=== PATIENT | female | born 1965 | race Hispanic/Latino ===

== ENCOUNTER 2017-10-20 07:32 | Day surgery (SDC) | payer OTHER ==
[~2017-10-20] VITALS: Ht 162.6 cm; Wt 79.0 kg
[~2017-10-20 07:32] MED LIST: ASPI-555 PO; ATOR40TA71 PO; CHOL200074 PO; INSU10VI3 SQ; LEVO150T11 PO; METF500T6 PO; SODIUM CHLORIDE 0.9% 1000ML 1,000 ML IV ONE; VALS40TA11 PO
[2017-10-20 07:43] VITALS: BP 146/69
[2017-10-20] MEDS ORDERED: HUM10VIA6 SQ ×2 (08:51)
[2017-10-20] MEDS ORDERED: FENTANYL CITRATE PF 50 MCG/1 ML 2ML VIAL ONE (10:09)
[2017-10-20] MEDS ORDERED: PROPOFOL 10 MG/ML 20ML VIAL IV ONE ×2 (10:09)
[2017-10-20 10:26] VITALS: BP 95/44
== END 2017-10-20 11:00 | disposition home or self-care (01) ==
LOC: DAH 07:32
PROVIDERS: ATTEND Internal Medicine Gastroenterology
DX: Z12.11 Encounter for screening for malignant neoplasm of colon (principal); K57.30 Diverticulosis of large intestine without perforation or abscess without bleeding; I10 Essential (primary) hypertension; E78.5 Hyperlipidemia, unspecified; I48.91 Unspecified atrial fibrillation; E11.9 Type 2 diabetes mellitus without complications; E03.9 Hypothyroidism, unspecified; Z90.710 Acquired absence of both cervix and uterus; Z98.890 Other specified postprocedural states; Z82.49 Family history of ischemic heart disease and other diseases of the circulatory system; Z79.4 Long term (current) use of insulin; Z79.82 Long term (current) use of aspirin
CPT/HCPCS: 45378; 82948 ×2; 93005; A4606; J2704 ×2; J3010; J7030

== ENCOUNTER → 2023-02-09 | Outpatient (CLI) | payer OTHER ==
[~2023-02-09] MED LIST changes: -ASPI-555 PO; +ASPI-556 PO; +HUM10VIA6 SQ; -INSU10VI3 SQ; +METF-444 PO; -METF500T6 PO; -SODIUM CHLORIDE 0.9% 1000ML 1,000 ML IV ONE
== END | disposition home or self-care (01) ==
LOC: RAH 13:50
PROVIDERS: ATTEND Nurse Practitioner Adult Health
DX: Z13.6 Encounter for screening for cardiovascular disorders (principal)
CPT/HCPCS: 75571

== ENCOUNTER → 2023-03-08 | Outpatient (CLI) | payer OTHER | END | disposition home or self-care (01) | LOC: RAH 12:59 | PROVIDERS: ATTEND Nurse Practitioner Adult Health | DX: R59.9 Enlarged lymph nodes, unspecified (principal); J39.8 Other specified diseases of upper respiratory tract; M47.815 Spondylosis without myelopathy or radiculopathy, thoracolumbar region; I70.0 Atherosclerosis of aorta | CPT/HCPCS: 71260 ==

== ENCOUNTER 2023-03-27 17:13 | Emergency (ER) | payer OTHER ==
[~2023-03-27] VITALS: Ht 154.9 cm; Wt 72.6 kg
[2023-03-27 17:58] LABS: BASOPHILS # (AUTO) 0.04 K/uL (0.00-0.20); BASOPHILS % (AUTO) 0.4 % (0.0-5.0); EOSINOPHILS # (AUTO) 0.12 K/uL (0.00-0.70); EOSINOPHILS % (AUTO) 1.3 % (0.0-8.0); HEMATOCRIT 36.5 % (36-48); IMMATURE GRANULOCYTE ABSOLUTE 0.03 K/uL (0-1); LYMPHOCYTES # (AUTO) 2.3 K/uL (1.0-4.8); LYMPHOCYTES % (AUTO) 25.2 % (21.0-51.0); MEAN CORPUSCULAR HGB CONC 32.6 g/dL (32.0-36.0); MEAN CORPUSCULAR VOLUME 85.9 fL (79-99); MONOCYTES # (AUTO) 0.5 K/uL (0.1-1.0); MONOCYTES % (AUTO) 5.2 % (3.0-13.0); NEUTROPHILS # (AUTO) 6.1 K/uL (1.8-7.7); NEUTROPHILS % (AUTO) 67.6 % (40.0-77.0); PLATELET COUNT (AUTO) 165 K/uL (130-400); RED BLOOD CELL COUNT(AUTO) 4.25 MIL/uL (4.00-5.50); RED CELL DISTRIBUTION WIDTH 14.6 % (11.0-15.5)
[2023-03-27 18:09] LABS: CREATININE 1.6 mg/dL (0.5-1.5); POTASSIUM 4.2 mmol/L (3.5-5.1)
[2023-03-27 18:11] LABS: INR < 0.93 (0.85-1.15); PROTHROMBIN TIME 10.4 SEC (9.6-11.6)
[2023-03-27 18:12] LABS: PARTIAL THROMBOPLASTIN TIME 25.5 SEC (26.3-35.5)
[2023-03-27 18:13] LABS: ALBUMIN 3.3 g/dL (3.5-5.0); BILIRUBIN,TOTAL 0.4 mg/dL (0.2-1.0); TOTAL PROTEIN, SERUM 7.3 g/dL (6.0-8.3)
[2023-03-27 23:10] VITALS: BP 154/69; PULSE 74; RESP 16; O2SAT 97
== END 2023-03-27 23:46 | disposition short-term general hospital (02) ==
LOC: EDH 17:13
DX: I63.9 Cerebral infarction, unspecified (principal); Z79.82 Long term (current) use of aspirin; Z79.84 Long term (current) use of oral hypoglycemic drugs; Z79.899 Other long term (current) drug therapy
CPT/HCPCS: 36415; 70450; 70544; 70547; 70551; 80053; 84484; 85025; 85610; 85730; 93005

== ENCOUNTER → 2024-09-14 | Outpatient (CLI) | payer OTHER ==
--- NOTE | 2024-09-14 16:21 | HMCIMG ---
CT calcium scoring Clinical Information: CT HEART SAVER SCREENING Comparison: None CT Dose Index (CTDI): 13.30 mGy Dose Length Product (DLP): 186.18 total mGy-cm Findings: Calcium score 401.70. Significant calcification. The CT scan is not a complete chest CT. Covered portion is reviewed for incidental findings. No incidental findings seen. IMPRESSION: Calcium score as above. Calcium score reference stable: 0: No identifiable calcification 1- 10: Minimal identifiable calcification 11-100: Mild calcification 101- 400: Moderate calcification 401 and above: Significant calcification Automated exposure control and adequate statistical iterative reconstructions were utilized as dose reduction techniques.
== END | disposition home or self-care (01) ==
LOC: RAH 15:09
PROVIDERS: ATTEND Nurse Practitioner Adult Health
DX: Z13.6 Encounter for screening for cardiovascular disorders (principal)
CPT/HCPCS: 75571

== ENCOUNTER 2025-03-08 15:44 | Observation (INO) | payer BC, MEDICARE, OTHER ==
[~2025-03-08] VITALS: Ht 157.5 cm; Wt 84.4 kg
[2025-03-08 16:21] LABS: IMMATURE GRANULOCYTE ABSOLUTE 0.06 K/uL (0-1); NUCLEATED RED BLOOD CELLS 0.0 % (0.0-0.19); PLATELET COUNT (AUTO) 149 K/uL (130-400); RED BLOOD CELL COUNT(AUTO) 5.13 MIL/uL (4.00-5.50); RED CELL DISTRIBUTION WIDTH 15.8 % (11.0-15.5); WHITE BLOOD COUNT (AUTO) 14.2 K/uL (4.8-10.8)
[2025-03-08 16:30] LABS: CREATININE 1.3 mg/dL (0.5-1.0); GLOMERULAR FILTR. RATE CALC 47.0 mL/min (>90); GLUCOSE,RANDOM 170.0 mg/dL (70-105); SODIUM SERUM 139.0 mmol/L (136-145); UREA NITROGEN, BLOOD 27.0 mg/dL (7-18)
[2025-03-08 16:33] LABS: INR 1.03 (0.85-1.15)
[2025-03-08 16:34] LABS: ASPARTATE AMINOTRANSFERASE 36.0 U/L (10-37); CREATINE KINASE, TOTAL 223.0 U/L (21-232); TOTAL PROTEIN, SERUM 7.4 g/dL (6.0-8.3)
--- NOTE | 2025-03-08 16:51 | NUR ---
RIGHT POSTIOR TIBIAL FOUND WITH DOPPLER NO DORSAL PEDIS AUDIABLE BUT PATIENT PRESENT WITH GOOD CAPILLARY REFILL. FAINT INTERMINTN POSTIOR TIBIAL FOUND WITH DOPPLER NO DORSAL PEDIS BUT PATIENT PRESENTS WITH GOOD CAPILLARY REFILL. GOOD SENSATION ON BOTH FEET.
--- NOTE | 2025-03-08 17:05 | NUR ---
LEFT HAND IV [address] ALEX ROGERS'S OFFICE.
--- NOTE | 2025-03-08 17:32 | HMCIMG ---
EXAM: CR Chest, 1 View. CLINICAL HISTORY: [facility] [place] COMPARISON: None provided. FINDINGS: LUNGS: There is no mass, infiltrate, or acute pulmonary abnormality. PLEURAL SPACES: No pleural effusion or pneumothorax. MEDIASTINUM: Prior sternotomy. Cardiac size and mediastinal contours within normal limits. BONES: No acute osseous abnormality. IMPRESSION: No acute cardiopulmonary pathology is evident. /[place]
--- NOTE | 2025-03-08 18:00 | NUR ---
DR. ALEX ROGERS CALLED, STATES THAT IF ED MD FEELS PT IS STABLE SHE CAN BE DISCHARGED HOME
--- NOTE | 2025-03-08 18:43 | ERN ---
ED Note History of Present Illness Stated Complaint: OTHER Chief Complaint: Other Problems Time Seen by MD: 15:50 Dictation: 59-year-old female history of recent CABG, CVA, and was having outpatient angiogram when she became very weak and hypotensive. Patient was given Lasix for fluid overload at clinic and sent in by EMS. Allergies: Coded Allergies: No Known Drug Allergies (Unverified Allergy, Unknown, 10/19/17) Home Meds Reported Medications Hum Insulin NPH/Reg Insulin Hm (Novolin 70-30 100 Unit/ml Vial) 100 Unit/1 Ml Vial, 30 UNITS SQ PM, VIAL 10/20/17 Hum Insulin NPH/Reg Insulin Hm (Novolin 70-30 100 Unit/ml Vial) 100 Unit/1 Ml Vial, 25 UNITS SQ AM, VIAL 10/20/17 Metformin HCl (Metformin HCl) 500 Mg Tablet, 500 MG PO BID, TAB 10/19/17 Cholecalciferol (Vitamin D3) (Vitamin D-3) 2,000 Unit Capsule, 1000 UNIT PO DAILY, CAP 10/19/17 Aspirin (Aspir 81) 81 Mg Tablet.dr, 81 MG PO DAILY, TAB 10/19/17 Valsartan (Valsartan) 40 Mg Tablet, 40 MG PO DAILY, TAB 10/19/17 Atorvastatin Calcium (Atorvastatin Calcium) 40 Mg Tablet, 40 MG PO DAILY, TAB 10/19/17 Levothyroxine Sodium (Levothyroxine Sodium) 150 Mcg Tablet, 150 MCG PO DAILY, TAB 10/19/17 Past Medical History Past Medical History: CHF, CVA, Hypertension, Hypothyroid, Other Additional Past Medical Hx: ARTHEROSCLEROSIS OF [place]IE[place] ARTERIES OF EXTREMITIES WITH REST PAIN, RLE. Surgical History: Appendectomy, CABG, Other, Surgical History Other: RIGHT BENING BREAT TUMOR, THYROIDECTOMY Review of System Dictation Constitutional: Negative for fever,chills, and weight loss Eyes: Negative for injury, pain,redness, and discharge ENT: Negative for injury,pain or swelling Cardiovascular: Negative for chest pain, palpitations, and edema Respiratory: Negative for shortness of breath, cough, and wheezing, Abdomen/GI: Negative for abdominal pain, nausea, vomiting, diarrhea, and constipation Back: Negative for injury and pain : Negative for injury, bleeding and discharge MS/Extremity: Negative for injury and deformity Skin: Negative for rash, and discoloration Neuro: Per HPI Initial Vital Sign VS Vital Signs Date Time Temp Pulse Resp B/P (MAP) Pulse Ox O2 Delivery O2 Flow Rate FiO2 03/08/25 15:46 99.0 75 20 134/61 98 Room Air 0 03/08/25 16:31 21 Physical Exam Dictation General: awake, alert, appears weak Head/Face: Normocephalic, atraumatic Eyes: PERRL, EOMI, vision at baseline ENT: oral cavity clear, TMs clear, no signs of infection Neck: Trachea midline, supple, no nuchal rigidity Cardiovascular: RRR, normal S1/S2, No MRGs, no JVD Respiratory: CTAB, no respiratory distress, No rales or wheezes Abdomen: Soft, non-tender, non-distended, normal bowel sounds, no guarding or rebound. Skin: Warm, dry, normal turgor, no rash MS/Extremity: Pulses equal, no cyanosis, neurovascular intact, FROM Neuro: COAx4, GCS 15, neuro at baseline Results (Laboratory/Radiology) Laboratory/Radiology Laboratory Tests Test 03/08/25 16:16 White Blood Count 14.2 K/uL (4.8-10.8) H Red Blood Count 5.13 MIL/uL (4.00-5.50) Hemoglobin 13.9 g/dL (12.0-16.0) Hematocrit 43.2 % (36-48) Mean Corpuscular Volume 84.2 fL (79-99) Mean Corpuscular Hemoglobin 27.1 pg (27.0-33.0) Mean Corpuscular Hemoglobin Concent 32.2 g/dL (32.0-36.0) Red Cell Distribution Width 15.8 % (11.0-15.5) H Platelet Count 149 K/uL (130-400) Mean Platelet Volume 12.2 fL (7.5-10.5) H Immature Granulocyte % (Auto) 0.4 % (0-1) Neutrophils (%) (Auto) 92.4 % (40.0-77.0) H Lymphocytes (%) (Auto) 1.8 % (21.0-51.0) L Monocytes (%) (Auto) 4.7 % (3.0-13.0) Eosinophils (%) (Auto) 0.6 % (0.0-8.0) Basophils (%) (Auto) 0.1 % (0.0-5.0) Neutrophils # (Auto) 13.1 K/uL (1.8-7.7) H Lymphocytes # (Auto) 0.3 K/uL (1.0-4.8) L Monocytes # (Auto) 0.7 K/uL (0.1-1.0) Eosinophils # (Auto) 0.09 K/uL (0.00-0.70) Basophils # (Auto) 0.02 K/uL (0.00-0.20) Absolute Immature Granulocyte (auto 0.06 K/uL (0-1) Nucleated Red Blood Cells 0.0 % (0.0-0.19) White Cell Morphology Comment See comments Prothrombin Time 10.9 SEC (9.6-11.6) Prothromb Time International Ratio 1.03 (0.85-1.15) Activated Partial Thromboplast Time 24.8 SEC (26.3-35.5) L Sodium Level 139 mmol/L (136-145) Potassium Level 4.1 mmol/L (3.5-5.1) Chloride Level 98 mmol/L (101-111) L Carbon Dioxide Level 35 mmol/L (21-32) H Blood Urea Nitrogen 27 mg/dL (7-18) H Creatinine 1.3 mg/dL (0.5-1.0) H Glomerular Filtration Rate Calc 47 mL/min (>90) Random Glucose 170 mg/dL (70-105) H Total Calcium 9.0 mg/dL (8.5-10.1) Total Bilirubin 0.7 mg/dL (0.2-1.0) Direct Bilirubin 0.2 mg/dL (0.0-0.3) Aspartate Amino Transf (AST/SGOT) 36 U/L (10-37) Alanine Aminotransferase (ALT/SGPT) 60 U/L (12-78) Alkaline Phosphatase 87 U/L (50-136) Total Creatine Kinase 223 U/L (21-232) Troponin I High Sensitivity 27 ng/L (4-50) B-Type Natriuretic Peptide 231 pg/mL (0-100) H Total Protein 7.4 g/dL (6.0-8.3) Albumin 3.4 g/dL (3.5-5.0) L Labs Reviewed?: Yes EKG Comment: Heart rate 77, normal sinus rhythm no STEMI ED Course ED Course Orders Procedure Category Date Status Time B-Type Natriuretic LAB 03/08/25 Complete Peptide 15:50 12 Lead Ekg Tracing- EKG 03/08/25 Logged Technical 15:50 Basic Metabolic Panel LAB 03/08/25 Complete 15:50 Cbc With Differential LAB 03/08/25 Complete 15:50 Hepatic Function Panel LAB 03/08/25 Complete 15:50 Creatine Kinase, Total LAB 03/08/25 Complete 15:50 Pt And Ptt LAB 03/08/25 Complete 15:50 Troponin I High LAB 03/08/25 Complete Sensitivity 15:50 Chest 1vw RAD 03/08/25 Resulted 15:50 Vital Signs Date Time Temp Pulse Resp B/P (MAP) Pulse Ox O2 Delivery O2 Flow Rate FiO2 03/08/25 17:43 77 15 137/53 97 Room Air* 0 21 03/08/25 16:31 99.3 76 23 159/58 97 Room Air* 0 21 03/08/25 15:46 99.0 75 20 134/61 98 Room Air 0 Medical Decision Making MDM MDM: Differential diagnosis: Rationale: Tests considered and ordered secondary to shared decision making include: labs, ECG and radiology Previous outside records reviewed: Old ER visits. Risk of complication and/or morbidity or mortality of patient management: None Medications-Per medication reconciliation Need for hospitalization: Patient does meet criteria for hospitalization. Need for emergency major/minor surgery: No There are no social concerns with this patient. Prescription drug management Prescriptions will include symptomatic care Patient's prior external medical records from other ER visits were reviewed by me as indicated. Prior testing and results from previous visits were reviewed. Prior tests were taken into account with medical decision making and resource utilization, independent historian/historians were used to obtain complete medical history. I independently interpreted the test that were performed, results were reviewed by me and considered findings on radiology if ordered. Medical management and examination interpretation discussions were had by me with other qualified healthcare professionals as indicated for the patient's care. 59-year-old female complex cardiac history with generalized weakness borderline hypotension status post angio in the outpatient setting admitting for telemetry observation. DX & DISP Disposition: Inpatient Departure Impression: Primary Impression: Hypotension Additional Impression: Weakness Condition: Stable Referrals: MAHNAZ ERAZO SUPERVISOR TOWER (PCP) RACIEL WESTON MD Mar 08, 2025 18:43
--- NOTE | 2025-03-08 19:11 | NUR ---
REPORT GIVEN TO GEOVANI NIELSEN AT THIS TIME
--- NOTE | 2025-03-08 19:12 | HP ---
[facility] Date of Service: Mar 08, 2025 Time of Service: 19:11 PCP:Ann Angel HISTORY OF PRESENT ILLNESS: This is a 59-year-old female past medical history of hypertension, anemia,hypothyroidism, CVA with right-sided weakness,cardiomyopathy, atherosclerosis of [place] arteries of extremities with rest pain on right lower extremity and coronary artery disease with CABG x3 who was brought by EMS to the ED for complaints of generalized body weakness and hypotension coming from a doctor's clinic post angiogram.As per patient she had a PTCA of her right lower extremity ,approached was left femoral artery done by today and she was at the recovery and her SBP was 185mmHg and fluctuates down to SBP 90 mmHg and she became nauseated ,feeling weak and not feeling good so she was sent to the ED for evaluation.Patient reports she was given her home med Midodrine 10 mg po and also Metoprolol 12.5 mg po while at the clinic she said. Benigno Tripp was at bedside during my evaluation. Seen and examined patient in the Ed awake,alert and coherent.Patient appears comfortable.Patient denies fever,cough,chest pain,palpitation and shortness of breath . Latest vital signs temperature 99.3, heart rate 77, respiration 15 blood pressure 137/53 saturation 97% on room air. Labs: WBC 14 with negative left shift of neutrophils 92, hemoglobin 13, hematocrit 43 platelet count 149. Chloride 98, CO2 35 BUN 27 creatinine 1.3 GFR 47 glucose 170, BNP 231, albumin 3.4 troponin 27. Chest x-ray result revealed no acute cardiopulmonary pathology is evident. ECG result revealed sinus rhythm heart rate 77.ER called and recommended to admit the patient. REVIEW OF SYSTEMS CONSTITUTIONAL: Denies fevers, chills, or night sweats. No unintentional weight loss reported. NEUROLOGICAL: Denies headache, amaurosis fugax, motor weakness, sensory deficit, vertigo/spinning sensation, gait abnormalities, or tremors. ENT: No hearing loss, otalgia, otorrhea, rhinitis, rhinorrhea, hoarseness, or sore throat. CARDIOVASCULAR: Denies any exertional angina, dyspnea on exertion, orthopnea, paroxysmal nocturnal dyspnea, palpitations, life-threatening arrhythmias, claudication. PULMONARY: Denies any shortness of breath, cough, phlegm/sputum, hemoptysis, pleuritic chest pain. SLEEP: Denies morning headaches, daytime somnolence or napping. Denies difficulty falling asleep, staying asleep, waking from sleep. Denies knowledge of snoring. GASTROINTESTINAL: Denies any type of dysphagia to either liquids or solids. Denies nausea, vomiting, pyrosis, early satiety, abdominal pain, diarrhea, con stipation, or changes in stool consistency or caliber. Denies coffee-ground emesis, hematemesis, hematochezia, or melanotic stools. GENITOURINARY: Denies frequency, urgency, nocturia, hematuria or incontinence (Storage/Irritative symptoms.) Low urinary stream, straining to void, urinary intermittency or hesitancy, splitting of the voiding stream, terminal dribbling. ENDOCRINOLOGIC: Denies polyuria, polydipsia, polyphagia or heat/cold intolerances. HEMATOLOGIC: Denies thrombophilia/previous clots, or coagulopathy/bleeding disorders. ONCOLOGIC: Denies personal history of malignancy. DERMATOLOGIC: Denies rashes or pruritus. PSYCHIATRIC: Denies any suicidal or homicidal ideation. Denies hallucinations. PAST MEDICAL HISTORY: [hypertension, anemia,hypothyroidism, CVA with right-sided weakness,cardiomyopathy, atherosclerosis of [place] arteries of extremities with rest pain on right lower extremity and coronary artery disease ] PAST SURGICAL HISTORY: [ CABG x3 PTCA ] PAST SOCIAL HISTORY: [ Pt.lives with .Pt.denies alcohol,cigarette and recreational drug use ] FAMILY HISTORY: [ Noncontributory] Coded Allergies: No Known Drug Allergies (Unverified Allergy, Unknown, 10/19/17) PHYSICAL EXAM GENERAL APPEARANCE: The patient is awake, alert, and oriented, in no acute cardiopulmonary distress. NEUROLOGICAL: Cranial nerves II-XII grossly intact. Motor is 5/5 in bilateral upper and lower extremities proximal to distal. No sensory deficits. HEENT: Face is symmetric. Pupils are equal and reactive. Extraocular movements are intact. NECK: Supple. No JVD. No thyromegaly. No submental, submandibular, pre- /postauricular, occipital or supraclavicular lymphadenopathy. CHEST: Normal chest expansion. No Telemetry. LUNGS: Absence of any rales, rhonchi or any wheezing. CARDIOVASCULAR: Regular. S1 and S2 normal. No appreciable rubs, murmurs or gallops. ABDOMEN: Soft, nontender, and nondistended. There is no rebound, voluntary guarding, or rigidity. : Deferred. No Garcia. EXTREMITIES: Non-edematous and not cyanotic. No clubbing. Good capillary refill. SKIN: No skin breakdown. Vital Sign (Last 24 Hours) 03/08/25 03/08/25 16:31 17:43 Temp 99.3 Pulse 77 Resp 15 B/P (MAP) 137/53 Pulse Ox 97 O2 Delivery Room Air* O2 Flow Rate 0 FiO2 21 LABS: Laboratory: Test 03/08/25 16:16 Range/Units White Blood Count 14.2 H 4.8-10.8 K/uL Red Blood Count 5.13 4.00-5.50 MIL/uL Hemoglobin 13.9 12.0-16.0 g/dL Hematocrit 43.2 36-48 % Mean Corpuscular Volume 84.2 79-99 fL Mean Corpuscular Hemoglobin 27.1 27.0-33.0 pg Mean Corpuscular Hemoglobin Concent 32.2 32.0-36.0 g/dL Red Cell Distribution Width 15.8 H 11.0-15.5 % Platelet Count 149 130-400 K/uL Mean Platelet Volume 12.2 H 7.5-10.5 fL Immature Granulocyte % (Auto) 0.4 0-1 % Neutrophils (%) (Auto) 92.4 H 40.0-77.0 % Lymphocytes (%) (Auto) 1.8 L 21.0-51.0 % Monocytes (%) (Auto) 4.7 3.0-13.0 % Eosinophils (%) (Auto) 0.6 0.0-8.0 % Basophils (%) (Auto) 0.1 0.0-5.0 % Neutrophils # (Auto) 13.1 H 1.8-7.7 K/uL Lymphocytes # (Auto) 0.3 L 1.0-4.8 K/uL Monocytes # (Auto) 0.7 0.1-1.0 K/uL Eosinophils # (Auto) 0.09 0.00-0.70 K/uL Basophils # (Auto) 0.02 0.00-0.20 K/uL Absolute Immature Granulocyte (auto 0.06 0-1 K/uL Nucleated Red Blood Cells 0.0 0.0-0.19 % White Cell Morphology Comment See comments Prothrombin Time 10.9 9.6-11.6 SEC Prothromb Time International Ratio 1.03 0.85-1.15 Activated Partial Thromboplast Time 24.8 L 26.3-35.5 SEC Sodium Level 139 136-145 mmol/L Potassium Level 4.1 3.5-5.1 mmol/L Chloride Level 98 L 101-111 mmol/L Carbon Dioxide Level 35 H 21-32 mmol/L Blood Urea Nitrogen 27 H 7-18 mg/dL Creatinine 1.3 H 0.5-1.0 mg/dL Glomerular Filtration Rate Calc 47 >90 mL/min Random Glucose 170 H 70-105 mg/dL Total Calcium 9.0 8.5-10.1 mg/dL Total Bilirubin 0.7 0.2-1.0 mg/dL Direct Bilirubin 0.2 0.0-0.3 mg/dL Aspartate Amino Transf (AST/SGOT) 36 10-37 U/L Alanine Aminotransferase (ALT/SGPT) 60 12-78 U/L Alkaline Phosphatase 87 50-136 U/L Total Creatine Kinase 223 21-232 U/L Troponin I High Sensitivity 27 4-50 ng/L B-Type Natriuretic Peptide 231 H 0-100 pg/mL Total Protein 7.4 6.0-8.3 g/dL Albumin 3.4 L 3.5-5.0 g/dL DIAGNOSTICS / RADIOLOGY: [ ] ASSESSMENT: Transient hypotension-resolved POA Acute leukocytosis POA Chronic kidney disease POA Uncontrolled diabetes POA Elevated BNP POA Coronary artery diseae with CABG x3 POA Hypothyroidism Hypertension POA CVA with rightsided weakness POA Cardiomyopathy POA Atherosclerosis od [place] arteries of extremities with res pain S/P PTCA to right lower extremity out patient POA PLAN: We will admit patient in medical telemetry We will start on heart healthy diet We will start on Rocephin 1 g IV daily for empiric coverage We will start famotidine 20 mg p.o. daily for GI prophylaxis We will replace electrolytes as needed per protocol We will start on insulin sliding scale AC & HS with hypoglycemia protocol We will add prn medication for fever,pain,cough , nausea and vomiting Home meds continued per pharmacy We will request labs in am Further orders to follow depending on above results Case discussed with attending physician and came up with above treatment and plan of care. ADVANCED CARE PLANNING 1. Which of the following were discussed? Hospice Care - No Therapeutic options - Yes Advance Directives - No Other discussions - 2. Discussed with who? Patient and 3. Voluntary nature of this service was explained to the patient? Yes 4. Amount of time spent - _22 min 5. Reviewed by Physician? (if this service was performed by NPP) Yes Patient seen and examined by me. Agree with note by JUKE BOX SERVICER SEE ADDITIONAL ORDERS PER CHART DISCUSSED WITH NURSING STAFF BEBO PERRIN PRIMER BOXER Mar 08, 2025 19:11
[2025-03-08] MEDS ORDERED: GLUCAGON 1MG KIT 1 MG ML IM PRN (19:30)
[2025-03-08] MEDS ORDERED: DEXTROSE 50%-WATER 50 ML DISP.SYRIN IV PRN (19:30)
[2025-03-08 20:00] VITALS: BP 136/61; PULSE 76; RESP 20; TEMP 98.4
[2025-03-08] MEDS ORDERED: EZET10TA80 PO (20:55)
[2025-03-08] MEDS ORDERED: METO25TA6 PO (20:55)
[2025-03-08] MEDS ORDERED: HYDR12.54 PO (20:55)
[2025-03-08] MEDS ORDERED: ROSU40TA88 PO (20:55)
[2025-03-08] MEDS ORDERED: LOSA25TA41 PO (20:55)
[2025-03-08] MEDS ORDERED: FURO40TA5 PO (20:55)
[2025-03-08] MEDS ORDERED: MIDO10TA3 PO (20:55)
[2025-03-08] MEDS ORDERED: LEVO200C3 PO (20:55)
[2025-03-08] MEDS ORDERED: NITR0.4T50 SL (20:55)
[2025-03-08] MEDS ORDERED: FAMO20TA8 PO (20:55)
[2025-03-08] MEDS ORDERED: NITROGLYCERIN 0.4 MG SL TAB SL SCH (21:00)
[2025-03-09] VITALS (7 sets, daily range): BP systolic 117–136; BP diastolic 61–66; PULSE 65–81; RESP 15–18; TEMP 97–98.5; O2SAT 97
--- NOTE | 2025-03-09 03:06 | EKG ---
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
[2025-03-09 07:20] LABS: IMMATURE GRANULOCYTE ABSOLUTE 0.06 K/uL (0-1); NUCLEATED RED BLOOD CELLS 0.0 % (0.0-0.19); PLATELET COUNT (AUTO) 149 K/uL (130-400); RED BLOOD CELL COUNT(AUTO) 4.54 MIL/uL (4.00-5.50); RED CELL DISTRIBUTION WIDTH 15.9 % (11.0-15.5); WHITE BLOOD COUNT (AUTO) 15.2 K/uL (4.8-10.8)
[2025-03-09 07:34] LABS: ASPARTATE AMINOTRANSFERASE 29.0 U/L (10-37); CREATININE 1.5 mg/dL (0.5-1.0); GLOMERULAR FILTR. RATE CALC 39.0 mL/min (>90); GLUCOSE,RANDOM 290.0 mg/dL (70-105); SODIUM SERUM 136.0 mmol/L (136-145); TOTAL PROTEIN, SERUM 6.2 g/dL (6.0-8.3); UREA NITROGEN, BLOOD 31.0 mg/dL (7-18)
[2025-03-09] MEDS: EZETIMIBE 10 MG TAB PO SCH (09:00)
[2025-03-09] MEDS: ASPIRIN 81 MG EC TAB PO SCH (09:00)
[2025-03-09] MEDS: FAMOTIDINE 20MG TAB PO SCH ×2 (09:00)
--- NOTE | 2025-03-09 09:17 | NUR ---
refused am meds, states she is waiting for md to round as she is wanting to go home today Addendum: 03/09/25 at 919 by SHAWN MILLER RN RN ALL AM MEDS RETURNED TO [facility]
--- NOTE | 2025-03-09 11:47 | NUR ---
[facility] Consult: Patient assessed by wound healing team. See wound assessment. Assessment and recommendations provided to primary nurse. Education provided. Addendum: 03/09/25 at 1424 by ABBY STEWART RN RN/ Amended: Links added.
--- NOTE | 2025-03-09 12:10 | CONS ---
Patient History: Cardiovascular disease FATHER BROTHER Diabetes mellitus BROTHER BROTHER SISTER SISTER Hypertension FATHER BROTHER Vitals/Labs Vital Signs Date Time Temp Pulse Resp B/P (MAP) Pulse Ox O2 Delivery O2 Flow Rate FiO2 03/09/25 10:07 97 Room Air* 0 21 03/09/25 08:00 97.9 81 18 133/66 Laboratory Tests 03/08/25 16:16 03/09/25 07:15 Allergies: Coded Allergies: No Known Drug Allergies (Unverified Allergy, Unknown, 10/19/17) Medications Current Medications Acetaminophen 650 mg Q6H PRN PO; Start 03/08/25 at 19:30; Stop 04/07/25 at 19:29 Acetaminophen 650 mg Q4H PRN PO; Start 03/08/25 at 19:30; Stop 04/07/25 at 19:29 Ondansetron HCl 4 mg Q6H PRN IV; Start 03/08/25 at 19:30; Stop 04/07/25 at 19:29 Famotidine 20 mg DAILY PO; Start 03/09/25 at 09:00; Stop 04/08/25 at 08:59 Ceftriaxone Sodium 1 gm/ Sodium Chloride 50 ml @ 100 mls/hr Q24H IV; Start 03/08/25 at 19:30; Stop 03/08/25 at 19:35; Status DC Insulin Human Regular INSULIN SLIDING SCAL... ACHS SQ Last administered on 03/08/25at 22:01; Start 03/08/25 at 21:00; Stop 04/07/25 at 20:59 Dextrose 50 ml AD PRN IV; Start 03/08/25 at 19:30; Stop 04/07/25 at 19:29 Glucagon 1 mg AD PRN IM; Start 03/08/25 at 19:30; Stop 04/07/25 at 19:29 Ceftriaxone Sodium 1 gm Q24H IVPB Last administered on 03/08/25at 21:59; Start 03/08/25 at 20:00; Stop 03/18/25 at 19:59 Aspirin 81 mg DAILY PO; Start 03/09/25 at 09:00; Stop 04/08/25 at 08:59 EZETIMIBE 10 mg DAILY PO; Start 03/09/25 at 09:00; Stop 04/08/25 at 08:59 Famotidine 20 mg DAILY PO; Start 03/09/25 at 09:00; Stop 04/08/25 at 08:59 Furosemide 40 mg DAILY PO; Start 03/09/25 at 09:00; Stop 04/08/25 at 08:59 Losartan Potassium 25 mg DAILY PO; Start 03/09/25 at 09:00; Stop 04/08/25 at 08:59 Metoprolol Tartrate 25 mg BID PO; Start 03/08/25 at 21:00; Stop 04/07/25 at 20:59 Nitroglycerin 0.4 mg AD SL; Start 03/08/25 at 21:00; Stop 04/07/25 at 20:59 Hydrochlorothiazide 12.5 mg BID PO; Start 03/09/25 at 09:00; Stop 04/08/25 at 08:59 Levothyroxine Sodium 200 mcg SYN PO Last administered on 03/09/25at 06:12; Start 03/09/25 at 06:30; Stop 04/08/25 at 06:29 Midodrine 10 mg TID PO; Start 03/09/25 at 09:00; Stop 04/08/25 at 08:59 Atorvastatin Calcium 80 mg HS PO; Start 03/09/25 at 21:00; Stop 04/08/25 at 20:59 Clopidogrel Bisulfate 75 mg DAILY PO; Start 03/09/25 at 09:00; Stop 04/08/25 at 08:59 MICH LEE PAC Mar 09, 2025 12:10
[2025-03-09 14:37] LABS: APPEARANCE,URINE CLEAR (CLEAR); GLUCOSE, URINE (UA) 500 mg/dL (NEGATIVE); LEUKOCYTE ESTERASE ,URINE NEGATIVE Leu/uL (NEGATIVE); NITRATE,URINE NEGATIVE (NEGATIVE); OCCULT BLOOD,URINE SMALL (NEGATIVE)
[2025-03-09 14:43] LABS: ADD UA MICROSCOPIC YES
[2025-03-09 14:46] LABS: OTHER CASTS, URINE 1 /LPF (None Seen); SQUAMOUS EPITHELIAL CELL,UR RARE /HPF (0-2)
[2025-03-09] MEDS ORDERED: AMOX-420 PO (15:56)
--- NOTE | 2025-03-09 16:16 | DS ---
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 She stated that during recovery from her angiogram her SBP was fluctuating between 185-190 and she became nauseated, feeling weak and not feeling good and hence was sent to ED for evaluation. In the emergency department, the patient was awake, alert, and coherent. She appeared comfortable and denied any fever, cough, chest pain, palpitations, and shortness of breaths. Her vitals signs in the ED showed a blood pressure of 137/53 a temperature of 99.3, a heart rate of , and a saturation of 97% on room air. Laboratory evaluation revealed a WBC count of 14 with a left shift of neutrophils 92, hemoglobin of 13, hematocrit of 43, a platelet count of 149. Serum chemistry revealed a chloride of 98, CO2 of 35, BUN of 27, creatinine of 1.3, GFR of 47, glucose of 170, BNP of 231, albumin of 3.4 and troponin of 27. Chest x-ray did not reveal any acute cardiopulmonary pathology and ECG revealed sinus rhythm with a heart rate of 77. Patient was admitted to the hospitalist service for further evaluation. The patient's blood pressure remained stable throughout her hospitalization. Elevated WBC count was followed up with CRP and procalcitonin which came back at 58.7 and 11.7 respectively. Urinalysis was sent, came back as negative for any urinary tract infection. A blood culture was sent which was pending result by the time of discharge. Patient was started on 1 g Rocephin as an empiric therapy. On day 1 patient stated that she is feeling much better and denied any symptoms. Due to her elevated blood glucose, HbA1c was sent which came back at 10.7 indicating uncontrolled diabetes and the patient was placed on an insulin sliding scale. Cardiology cleared the patient from a cardiac standpoint to be discharged. On 03/09/2025, the patient was clinically and hemodynamically stable enough for discharge. The patient was still pending a blood culture and identification of an unknown source of infection which was not able to be assessed during this hospitalization due to the patient's insistence on leaving today. The risks and benefits of an unknown infection were explained to the patient and she was advised that she needs to come back to the hospital if the blood culture comes back positive which she agreed to. Patient will also be advised to follow up with her tactical response group officer, director of rehabilitation and wellness, zipper measurer, and her primary care physician for long-term management of her comorbidities. Procedure(s): [facility] [address] [place] [address] IMAGING REPORT Signed PATIENT: VIJI NGUYỄN MR#: [id number] : 1965 SEX: F AGE: 59 LOCATION: [facility] ORDER 50 STATUS: [facility] REPORT#: [id number] SERVICE 49 REASON: gbw ORDERING PHYSICIAN: RACIEL WESTON MD PROCEDURE: CXR1VW - CHEST 1VW EXAM: CR Chest, 1 View. CLINICAL HISTORY: gbw COMPARISON: None provided. FINDINGS: LUNGS: There is no mass, infiltrate, or acute pulmonary abnormality. PLEURAL SPACES: No pleural effusion or pneumothorax. MEDIASTINUM: Prior sternotomy. Cardiac size and mediastinal contours within normal limits. BONES: No acute osseous abnormality. IMPRESSION: No acute cardiopulmonary pathology is evident. /[place] DICTATED BY: SAMMIE CHANEL Jr., MD DATE: 03/08/251830 ELECTRONICALLY SIGNED BY: SAMMIE CHANEL Jr., MD DATE: 03/08/251830 Assessment/Plan: ASSESSMENT: Transient hypotension-resolved POA Acute leukocytosis POA Chronic kidney disease POA Uncontrolled diabetes POA Elevated BNP POA Coronary artery diseae with CABG x3 POA Hypothyroidism Hypertension POA CVA with rightsided weakness POA Cardiomyopathy POA Atherosclerosis od bad river band arteries of extremities with res pain S/P PTCA to right lower extremity out patient POA Discharge Instructions: You were admitted with a low blood pressure (hypotension), which resolved on its own during your hospital stay. Lab work showed elevated CRP and procalcitonin, suggesting there may be an infection. However, you chose not to remain in the hospital for further evaluation. You are now being discharged home on empiric oral antibiotics. Please monitor yourself closely for any signs of infection such as fever, chills, cough, shortness of breaths, painful urination, abdominal pain, or confusion, and seek immediate medical care if these occur. We also discussed with you the possibility of needing to return to the hospital if your blood culture results come back positive as this may indicate a serious infection requiring IV antibiotics and further treatment. It is very important that you follow up promptly with your primary care physician, as well as your tactical response group officer, zipper measurer, and your director of rehabilitation and wellness, for ongoing evaluation and management of your health. Home Medications: Reported Medications Metoprolol Tartrate (Metoprolol Tartrate) 25 Mg Tablet, 1 TAB PO BID for 30 Days, #60 TAB 0 Refills 03/08/25 Nitroglycerin (Nitroglycerin) 0.4 Mg Tab.subl, 0.4 MG SL AD, TAB.SL 03/08/25 Ezetimibe (Ezetimibe) 10 Mg Tablet, 1 TAB PO DAILY for 30 Days, #30 TAB 0 Refills 03/08/25 Famotidine (Famotidine) 20 Mg Tablet, 20 MG PO DAILY, TAB 03/08/25 Losartan Potassium (Losartan Potassium) 25 Mg Tablet, 1 TAB PO DAILY for 30 Days, #30 TAB 0 Refills 03/08/25 Hydrochlorothiazide (Hydrochlorothiazide) 12.5 Mg Tablet, 12.5 MG PO BID, TAB 03/08/25 Levothyroxine Sodium (Levothyroxine) 200 Mcg Capsule, 1 CAP PO DAILY for 30 Days, #30 CAP 0 Refills 03/08/25 Midodrine HCl (Midodrine HCl) 10 Mg Tablet, 1 TAB PO TID for 30 Days, #90 TAB 0 Refills 03/08/25 Furosemide (Furosemide) 40 Mg Tablet, 1 TAB PO DAILY for 30 Days, #30 TAB 0 Refills 03/08/25 Rosuvastatin Calcium (Rosuvastatin Calcium) 40 Mg Tablet, 1 TAB PO DAILY for high cholesterol for 30 Days, #30 TAB 0 Refills 03/08/25 Hum Insulin NPH/Reg Insulin Hm (Novolin 70-30 100 Unit/ml Vial) 100 Unit/1 Ml Vial, 30 UNITS SQ PM, VIAL 4/25/18 Hum Insulin NPH/Reg Insulin Hm (Novolin 70-30 100 Unit/ml Vial) 100 Unit/1 Ml Vial, 25 UNITS SQ AM, VIAL 10/20/17 Metformin HCl (Metformin HCl) 500 Mg Tablet, 500 MG PO BID, TAB 10/19/17 Cholecalciferol (Vitamin D3) (Vitamin D-3) 2,000 Unit Capsule, 1000 UNIT PO DAILY, CAP 10/19/17 Aspirin (Aspir 81) 81 Mg Tablet.dr, 81 MG PO DAILY, TAB 10/19/17 Valsartan (Valsartan) 40 Mg Tablet, 40 MG PO DAILY, TAB 10/19/17 Atorvastatin Calcium (Atorvastatin Calcium) 40 Mg Tablet, 40 MG PO DAILY, TAB 10/19/17 Levothyroxine Sodium (Levothyroxine Sodium) 150 Mcg Tablet, 150 MCG PO DAILY, TAB 10/19/17 New Medications: Amoxicillin/Potassium Clav (Amoxicillin-Clav ER 1,000-62.5) 1,000 Mg-62.5 Mg Tab.er.12h 1 TAB PO BID for 7 Days, #14 TAB 0 Refills Continued Medications: Aspirin (Aspir 81) 81 Mg Tablet.dr 81 MG PO DAILY, TAB Atorvastatin Calcium (Atorvastatin Calcium) 40 Mg Tablet 40 MG PO DAILY, TAB Cholecalciferol (Vitamin D3) (Vitamin D-3) 2,000 Unit Capsule 1000 UNIT PO DAILY, CAP Ezetimibe (Ezetimibe) 10 Mg Tablet 1 TAB PO DAILY for 30 Days, #30 TAB 0 Refills Famotidine (Famotidine) 20 Mg Tablet 20 MG PO DAILY, TAB Furosemide (Furosemide) 40 Mg Tablet 1 TAB PO DAILY for 30 Days, #30 TAB 0 Refills Hum Insulin NPH/Reg Insulin Hm (Novolin 70-30 100 Unit/ml Vial) 100 Unit/1 Ml Vial 25 UNITS SQ AM, VIAL Hum Insulin NPH/Reg Insulin Hm (Novolin 70-30 100 Unit/ml Vial) 100 Unit/1 Ml Vial 30 UNITS SQ PM, VIAL Hydrochlorothiazide (Hydrochlorothiazide) 12.5 Mg Tablet 12.5 MG PO BID, TAB Levothyroxine Sodium (Levothyroxine Sodium) 150 Mcg Tablet 150 MCG PO DAILY, TAB Levothyroxine Sodium (Levothyroxine) 200 Mcg Capsule 1 CAP PO DAILY for 30 Days, #30 CAP 0 Refills Losartan Potassium (Losartan Potassium) 25 Mg Tablet 1 TAB PO DAILY for 30 Days, #30 TAB 0 Refills Metformin HCl (Metformin HCl) 500 Mg Tablet 500 MG PO BID, TAB Metoprolol Tartrate (Metoprolol Tartrate) 25 Mg Tablet 1 TAB PO BID for 30 Days, #60 TAB 0 Refills Midodrine HCl (Midodrine HCl) 10 Mg Tablet 1 TAB PO TID for 30 Days, #90 TAB 0 Refills Nitroglycerin (Nitroglycerin) 0.4 Mg Tab.subl 0.4 MG SL AD, TAB.SL Rosuvastatin Calcium (Rosuvastatin Calcium) 40 Mg Tablet 1 TAB PO DAILY for high cholesterol for 30 Days, #30 TAB 0 Refills Valsartan (Valsartan) 40 Mg Tablet 40 MG PO DAILY, TAB Time spent arranging discharge: 1-30 minutes ATTESTATION BY PHYSICIAN I have seen and examined the patient. I reviewed the documentation, medical decision making, and treatment plan as noted by the resident provider above. I agree with the findings and plan of care. Yonas Villela MD, HEMA MD Mar 09, 2025 16:16
--- NOTE | 2025-03-09 17:36 | NUR ---
d/c instructions given and acnowledged. iv removed. wound photos of bilateral lower legs taken by [facility] wound care nurse
== END 2025-03-09 17:50 | disposition home or self-care (01) ==
LOC: EDH 15:44 → INTOOBSV 19:24 → EDHIP 19:24 → 3CH 03-09 03:39
PROVIDERS: ADMIT Hospitalist; ATTEND Hospitalist
DX: I95.89 Other hypotension (principal); D72.829 Elevated white blood cell count, unspecified; I13.0 Hypertensive heart and chronic kidney disease with heart failure and stage 1 through stage 4 chronic kidney disease, or unspecified chronic kidney disease; E11.22 Type 2 diabetes mellitus with diabetic chronic kidney disease; I50.9 Heart failure, unspecified; N18.9 Chronic kidney disease, unspecified; E11.65 Type 2 diabetes mellitus with hyperglycemia; E11.51 Type 2 diabetes mellitus with diabetic peripheral angiopathy without gangrene; I25.10 Atherosclerotic heart disease of native coronary artery without angina pectoris; I42.9 Cardiomyopathy, unspecified; I70.203 Unspecified atherosclerosis of native arteries of extremities, bilateral legs; E89.0 Postprocedural hypothyroidism; R53.1 Weakness; Z95.1 Presence of aortocoronary bypass graft; Z98.61 Coronary angioplasty status; Z79.899 Other long term (current) drug therapy; Z98.890 Other specified postprocedural states
CPT/HCPCS: 96365; 99284; 82550; 80076; 84484; 80048; 83880; 85025 ×2; 85610; 85730; 87040 ×2; 82948; 36415 ×2; 71045; 96372; 93005; 83036; 83735; 80053; 87086; 83605; 86140; 81001; 94660; 84145 ×2; J0696; G0378 ×6; 96374; 99285